=== PATIENT | female | born 1940 | race Caucasian/White ===

== ENCOUNTER → 2016-09-04 | Outpatient (CLI) | payer MEDICARE, MEDICAID ==
[~2016-09-04] MED LIST: ACTOS30 MG PO; ANTI HYPERTENSIVE; ASPIRIN E.C.325 MG PO; BACTRIM PO; BROVANA15 MCG/2 M IH; CALAN SR240 MG PO; CARDIZEM CD360 MG PO; CARDIZEM LA180 MG PO; CARDURA4 MG PO; CLINDAMYCIN HC300 MG PO; DIOVAN160 MG PO; DIOVAN320 MG PO; FERROUS SU325 MG/TAB PO; FORTAMET1000 MG PO; GLUCOPHAGE1000 MG PO; HYDROCHLOR50 MG PO; HYDRODIURIL50 MG PO; IRON324 M1 PO; KLOR-CON 1010 MEQ PO; LASIX 20MG TABL20 MG PO; LIPITOR 10MG10 MG PO; MULTAQ400 MG PO; MULTIVITAMIN FO1 CAP PO; NORCO 325 MG-51 TAB PO; NORVASC 10MG10 MG PO; PERCOCET 5/321 UDTAB PO; PRADAXA75 MG PO; PREDNISONE20 MG PO; PREVACID 30MG30 MG PO; PROAIR HFA0.09 MG/AC IH; PULMICORT0.5 MG/2 M IH; TOPROL XL100 MG PO; ULTRAM 50MG TAB50 MG PO; VIT D; VITAMIN D 1001000 IU PO; ZITHROMAX 250M250 MG PO; ZITHROMAX Z PA250 MG PO
== END ==
LOC: COL.VAS 12:15
DX: I65.29 Occlusion and stenosis of unspecified carotid artery (principal)

== ENCOUNTER → 2016-10-09 | Outpatient (CLI) | payer MEDICARE, MEDICAID | LOC: MC.RAD 11:20 | DX: Z12.31 Encounter for screening mammogram for malignant neoplasm of breast (principal) ==

== ENCOUNTER → 2017-10-28 | Outpatient (CLI) | payer MEDICARE, MEDICAID | LOC: MC.RAD 14:00 | DX: Z12.31 Encounter for screening mammogram for malignant neoplasm of breast (principal); N64.89 Other specified disorders of breast ==

== ENCOUNTER → 2017-10-30 | Outpatient (CLI) | payer MEDICARE, MEDICAID | LOC: MC.RAD 09:57 | DX: R92.8 Other abnormal and inconclusive findings on diagnostic imaging of breast (principal) ==

== ENCOUNTER → 2018-09-04 | Outpatient (CLI) | payer MEDICARE, MEDICAID | LOC: COL.VAS 10:55 | DX: I77.9 Disorder of arteries and arterioles, unspecified (principal) ==

== ENCOUNTER → 2018-10-30 | Outpatient (CLI) | payer MEDICARE, MEDICAID ==
[~2018-10-30] MED LIST changes: +ATIVAN 0.50.5 MG/TAB PO; +BENICAR40 MG PO; +FERROUSAL325 MG PO; +K-TAB10 PO; +KAPSPARGO SPRI100 MG PO; +LIPITOR20 MG PO; +PRIL40 PO; +ZOFRAN ODT4 MG PO; +ZOLOFT 50MG50 MG PO
== END ==
LOC: MC.RAD 13:06
DX: Z12.31 Encounter for screening mammogram for malignant neoplasm of breast (principal)

== ENCOUNTER → 2018-11-03 | Outpatient (CLI) | payer MEDICARE, MEDICAID ==
[~2018-11-03] MED LIST changes: -ATIVAN 0.50.5 MG/TAB PO; -BENICAR40 MG PO; -FERROUSAL325 MG PO; -K-TAB10 PO; -KAPSPARGO SPRI100 MG PO; -LIPITOR20 MG PO; -PRIL40 PO; -ZOFRAN ODT4 MG PO; -ZOLOFT 50MG50 MG PO
== END ==
LOC: COL.VAS 12:16
DX: Z12.31 Encounter for screening mammogram for malignant neoplasm of breast (principal); I48.2 Chronic atrial fibrillation; I11.9 Hypertensive heart disease without heart failure

== ENCOUNTER 2018-11-09 13:52 | Emergency (ER) | payer MEDICARE, MEDICAID ==
[~2018-11-09] VITALS: Ht 170.2 cm; Wt 77.3 kg
[2018-11-09 13:54] VITALS: TEMP 98.1
[2018-11-09] MEDS ORDERED: KAPSPARGO SPRI100 MG PO (14:48)
[2018-11-09] MEDS ORDERED: BENICAR40 MG PO (14:48)
[2018-11-09] MEDS ORDERED: ZOLOFT 50MG50 MG PO (14:49)
[2018-11-09] MEDS ORDERED: ATIVAN 0.50.5 MG/TAB PO (14:49)
[2018-11-09] MEDS ORDERED: TOPROL XL100 MG PO (14:49)
[2018-11-09] MEDS ORDERED: PRIL40 PO (14:49)
[2018-11-09] MEDS ORDERED: FERROUSAL325 MG PO (14:50)
[2018-11-09] MEDS ORDERED: LIPITOR20 MG PO (14:51)
[2018-11-09] MEDS ORDERED: MULTAQ400 MG PO (14:51)
[2018-11-09] MEDS ORDERED: K-TAB10 PO (14:52)
[2018-11-09] MEDS ORDERED: NORCO 325 MG-51 TAB PO (15:32)
[2018-11-09] MEDS ORDERED: ZOFRAN ODT4 MG PO (15:32)
[2018-11-09 16:00] VITALS: BP 138/64; PULSE 65
== END 2018-11-09 16:00 | disposition home or self-care (01) ==
LOC: COL.ER 13:52
DX: S42.202A Unspecified fracture of upper end of left humerus, initial encounter for closed fracture (principal); J44.9 Chronic obstructive pulmonary disease, unspecified; I12.9 Hypertensive chronic kidney disease with stage 1 through stage 4 chronic kidney disease, or unspecified chronic kidney disease; E11.22 Type 2 diabetes mellitus with diabetic chronic kidney disease; N18.9 Chronic kidney disease, unspecified; I48.91 Unspecified atrial fibrillation; F17.210 Nicotine dependence, cigarettes, uncomplicated; Z79.82 Long term (current) use of aspirin; W01.0XXA Fall on same level from slipping, tripping and stumbling without subsequent striking against object, initial encounter; Y92.009 Unspecified place in unspecified non-institutional (private) residence as the place of occurrence of the external cause
CPT/HCPCS: J2405; J3010

== ENCOUNTER 2019-03-24 06:48 | Emergency (ER) | payer MEDICARE, MEDICAID ==
[~2019-03-24] VITALS: Ht 165.1 cm; Wt 78.6 kg
[~2019-03-24 06:48] MED LIST changes: +ATIVAN 0.50.5 MG/TAB PO; +BENICAR40 MG PO; +FERROUSAL325 MG PO; +K-TAB10 PO; +KAPSPARGO SPRI100 MG PO; +LIPITOR20 MG PO; +PRIL40 PO; +ZOFRAN ODT4 MG PO; +ZOLOFT 50MG50 MG PO
[2019-03-24 09:49] VITALS: BP 144/64; PULSE 55; TEMP 97.9
== END 2019-03-24 10:10 | disposition home or self-care (01) ==
LOC: COL.ER 06:48
DX: S20.212A Contusion of left front wall of thorax, initial encounter (principal); E11.9 Type 2 diabetes mellitus without complications; Z87.891 Personal history of nicotine dependence; Z79.84 Long term (current) use of oral hypoglycemic drugs; Z87.448 Personal history of other diseases of urinary system; W01.0XXA Fall on same level from slipping, tripping and stumbling without subsequent striking against object, initial encounter

== ENCOUNTER → 2019-04-05 | Outpatient (CLI) | payer MEDICARE, MEDICAID ==
[~2019-04-05] MED LIST changes: +ASPIRIN 81M81 MG/TA2 PO; +LASIX 40MG TABL40 MG PO; +NEURONTIN300 MG/CAP PO; +NITROSTAT0.4 MG/TAB SL
== END ==
LOC: COL.RAD 12:37
DX: M51.16 Intervertebral disc disorders with radiculopathy, lumbar region (principal); M43.17 Spondylolisthesis, lumbosacral region

== ENCOUNTER 2019-04-06 10:51 | Inpatient (IN) | payer MEDICARE, MEDICAID ==
[~2019-04-06] VITALS: Ht 167.6 cm; Wt 85.9 kg
[~2019-04-06 10:51] MED LIST changes: -ASPIRIN 81M81 MG/TA2 PO; -LASIX 40MG TABL40 MG PO; -NEURONTIN300 MG/CAP PO; -NITROSTAT0.4 MG/TAB SL
[2019-04-06 11:39] LABS: BASO # 0.1 (0.0-0.2); BASO % 0.7 % (0.0-2.0); EOS # 0.2 (0.0-0.7); EOS % 2.3 % (0-4.0); GRAN # 5.2 (1.4-6.5); GRAN % 73.3 % (42.2-75.2); LYMPH # 1.1 (1.2-3.4); LYMPH % 15.1 % (20.0-51.0); MEAN CELL VOLUME 98 fl (80.0-100.0); MEAN CORPUSCULAR HGB CONC 31 g/dl (33.0-37.0); MEAN PLATELET VOLUME 10.6 fl (7.4-10.4); MONO # 0.5 (0.1-0.6); MONO % 7.7 % (1.7-9.3); PLATELET COUNT 149 K/mm3 (130-400); RED BLOOD COUNT 2.79 M/mm3 (4.10-5.30); REDCELL DISTRIBUTION WIDTH-CV 14.6 % (11.5-14.5)
[2019-04-06 11:51] LABS: BILIRUBIN,TOTAL 0.7 mg/dL (0.0-1.0); CALCIUM 9.4 mg/dL (8.4-10.2); CREATININE, serum 2.75 (0.52-1.25); POTASSIUM 4.3 mmol/L (3.4-5.0); TOTAL PROTEIN 7.5 gm/dL (6.4-8.2)
[2019-04-06 11:59] LABS: HEMATOCRIT 27.4 % (37.0-47.0); HEMOGLOBIN 8.5 g/dl (12.5-16.0); MEAN CORPUSCULAR HEMOGLOBIN 30 pg (27.0-31.0)
[2019-04-06 12:01] LABS: TROPONIN-I 0.018 ng/mL (0.000-0.035)
[2019-04-06 12:29] LABS: INR 1.2 (0.8-3.0); PARTIAL THROMBOPLASTIN TIME 33.4 SECONDS (26.0-37.0); PROTHROMBIN TIME 13.5 SECONDS (9.7-12.8)
[2019-04-06 13:09] LABS: COLLECTION METHOD CLEAN CATCH
[2019-04-06 13:23] LABS: PH 5 (5-8); SQUAMOUS EPITHELIAL 0-2 /hpf; URINE APPEARANCE Clear; URINE BACTERIA Rare /hpf; URINE BILIRUBIN Negative (NEGATIVE); URINE BLOOD Negative (NEGATIVE); URINE COLOR Straw; URINE GLUCOSE 1+ (NEGATIVE); URINE KETONE Negative (NEGATIVE); URINE LEUKOCYTE ESTERASE Negative (NEGATIVE); URINE NITRATE Negative (NEGATIVE); URINE PROTEIN(semi-quant) 2+ (NEGATIVE); URINE RBC 0-2 /hpf; URINE UROBILINOGEN Negative (NEGATIVE)
[2019-04-06 15:23] VITALS: BP 145/62; PULSE 65; TEMP 98.3
[2019-04-06 15:28] VITALS: BP 145/62; PULSE 67; TEMP 97.5
[2019-04-06 19:25] VITALS: BP 109/69; PULSE 61; TEMP 98.1
--- NOTE | 2019-04-06 19:40 | NUR ---
Pt admission completed. Pt seen by hospitalist. Pt A&O, SBA assist in room, usually uses walker at home, pt steady on feet. Pt has LAC INT IV that flushes w/o complications. Pt on 2L NC. ECHO to be completed earlier but pt unable to finish/tolerate full test, ended earlier d/t pt not being able to breathe. Discussed w/ DARY Guillaume. May attempt again tomorrow. O2 sats checked, pt satting at 88%, breathing is labored, O2 increased to 3L NC at this time. Sats increasing to 94%. WOB decreasing. Breath sounds diminished, some wheezing noted. Heart RRR. Pulses strong. BLE edema 1-2+. Neuro checks WNL. Pt received dose of lasix. Gustavo consulted. No other concerns noted at this time.
[2019-04-06] MEDS ORDERED: NEURONTIN300 MG/CAP PO (19:53)
[2019-04-06] MEDS ORDERED: ASPIRIN 81M81 MG/TA2 PO (19:57)
[2019-04-06] MEDS ORDERED: NITROSTAT0.4 MG/TAB SL (19:58)
[2019-04-06] MEDS ORDERED: LASIX 40MG TABL40 MG PO (20:00)
--- NOTE | 2019-04-06 20:00 | NUR ---
Received report from INDIO Fields. Assessment complete. Alert and oriented. Son at bedside. c/o pain to left shoulder, left side rib, and back pain, rate 5/10. PRN pain meds administered. Scheduled meds administered. On 2LO2 NC, denies SOB. INT to LAC intact, flushed, dressing CDI. Tele monitor in place. Assisted pt to BSC. Needs met. Call light within reach.
--- NOTE | 2019-04-06 20:04 | NUR ---
Med list from PCP office obtained, med rec completed. transportation planner nurse notified.
[2019-04-06 23:20] VITALS: BP 101/48; PULSE 67; TEMP 98.5
[2019-04-07 03:54] VITALS: BP 120/57; PULSE 66; TEMP 98.2
--- NOTE | 2019-04-07 05:58 | NUR ---
Pt c/o back pain, prn pain meds administered. Pt requested nicoderm patch at 0400, this was placed at this time to pt left upper chest, will endorse to day shift RN. Needs attended too. Meds administered. Call light within reach.
[2019-04-07 06:59] LABS: BASO # 0.1 (0.0-0.2); EOS # 0.2 (0.0-0.7); EOS % 2.3 % (0-4.0); GRAN # 4.7 (1.4-6.5); GRAN % 66.6 % (42.2-75.2); LYMPH # 1.5 (1.2-3.4); LYMPH % 21.6 % (20.0-51.0); MEAN CELL VOLUME 99 fl (80.0-100.0); MEAN CORPUSCULAR HGB CONC 31 g/dl (33.0-37.0); MEAN PLATELET VOLUME 11.1 fl (7.4-10.4); MONO # 0.6 (0.1-0.6); MONO % 8.2 % (1.7-9.3); PLATELET COUNT 168 K/mm3 (130-400); RED BLOOD COUNT 2.73 M/mm3 (4.10-5.30); REDCELL DISTRIBUTION WIDTH-CV 14.6 % (11.5-14.5)
--- NOTE | 2019-04-07 07:08 | NUR ---
Report given to INDIO Matos and INDIO Esquivel.
[2019-04-07 07:16] LABS: HEMATOCRIT 26.9 % (37.0-47.0); HEMOGLOBIN 8.2 g/dl (12.5-16.0); MEAN CORPUSCULAR HEMOGLOBIN 30 pg (27.0-31.0)
[2019-04-07 07:18] LABS: CALCIUM 9.4 mg/dL (8.4-10.2); CREATININE, serum 2.64 (0.52-1.25); MAGNESIUM 1.7 mg/dL (1.6-2.3); POTASSIUM 3.8 mmol/L (3.4-5.0)
[2019-04-07 08:44] VITALS: BP 129/53; PULSE 69; TEMP 98.5
--- NOTE | 2019-04-07 12:05 | NUR ---
Initial visit; Patient thanked Broadcast Checker for offering spiritual care and for calling her [facility] home letting them know of her hospitalization.
[2019-04-07 12:21] VITALS: BP 129/60; PULSE 68; TEMP 98.6
--- NOTE | 2019-04-07 16:49 | NUR ---
Radiation Safety Officer met with patient to discuss discharge planning. Patient's sons, Khanh and Shayan are at bedside. Patient lives with her daughter Mariella (ph#[phone]) in [place] and sees Dr. Forrest for primary care. [facility] and uses a walker at home. Patient is unsure if she has Advance Directives but thinks at one time she set them up to designate her daughter. Patient reports she feels she could use some assistance at home with house cleaning. Patient plans to return home upon discharge. SW to continue to follow.
[2019-04-07 17:21] VITALS: BP 94/52; PULSE 65; TEMP 98.7
[2019-04-07 20:00] VITALS: BP 116/48; PULSE 65; TEMP 98.5
--- NOTE | 2019-04-07 23:35 | NUR ---
Received report from INDIO Matos. Assessment complete. Alert and oriented. Pt awake sitting up in bed with son at bedside. C/O low back pain that radiated down to rt leg from sciatic nerve pain, prn pain meds adminsitered. Scheduled meds given. denies SOB, on 2LO2NC. Pt ambulates self using walker. SCD in place to BLE. Tele monitor in place, leads checked. INT to LAC intact, flushed, dressing CDI. Needs attended too. Call light within reach.
[2019-04-08 01:27] VITALS: BP 112/68; PULSE 68; TEMP 98.1
[2019-04-08 05:17] VITALS: BP 110/57; PULSE 69; TEMP 98.1
--- NOTE | 2019-04-08 05:23 | NUR ---
Pt requested pain med for low back pain and left side rib pain. PRN pain meds administered. Scheduled meds given. Son remained at bedside. Needs attended too. Call light within reach.
--- NOTE | 2019-04-08 07:17 | NUR ---
Report given to INDIO Matos.
[2019-04-08 07:20] LABS: BASO % 0.6 % (0.0-2.0); EOS # 0.3 (0.0-0.7); EOS % 4.3 % (0-4.0); GRAN # 4.3 (1.4-6.5); GRAN % 67.4 % (42.2-75.2); LYMPH # 1.1 (1.2-3.4); LYMPH % 16.9 % (20.0-51.0); MEAN CELL VOLUME 98 fl (80.0-100.0); MEAN CORPUSCULAR HGB CONC 31 g/dl (33.0-37.0); MEAN PLATELET VOLUME 10.8 fl (7.4-10.4); MONO # 0.7 (0.1-0.6); MONO % 10.3 % (1.7-9.3); PLATELET COUNT 133 K/mm3 (130-400); RED BLOOD COUNT 2.52 M/mm3 (4.10-5.30); REDCELL DISTRIBUTION WIDTH-CV 14.7 % (11.5-14.5)
[2019-04-08 07:28] LABS: HEMATOCRIT 24.7 % (37.0-47.0); HEMOGLOBIN 7.7 g/dl (12.5-16.0); MEAN CORPUSCULAR HEMOGLOBIN 31 pg (27.0-31.0)
[2019-04-08 07:32] LABS: CREATININE, serum 2.89 (0.52-1.25); MAGNESIUM 1.6 mg/dL (1.6-2.3); POTASSIUM 3.9 mmol/L (3.4-5.0)
[2019-04-08 07:49] VITALS: BP 131/66; PULSE 65; TEMP 99
[2019-04-08] MEDS ORDERED: LASIX 40MG TABL40 MG PO (09:45)
--- NOTE | 2019-04-08 10:20 | NUR ---
Follow-up visit; let Alessandra know she had contacted her Business Banker per request. wished her continued healing.
--- NOTE | 2019-04-08 10:34 | NUR ---
REPORT RECEIVED FROM TUBE MACHINE OPERATOR RN EVANGELISTA. PT RESTING IN BED, ALERT AND AWAKE. SON AT BEDSIDE. THORACENTESIS PERFORMED BY DR. MONTEMAYOR THIS AM WITH 830 ML OF FLUID REMOVED FROM LEFT LUNG FIELD. PT WEARS 2L O2 AND REPORTS BREATHING BETTER AFTER FLUID REMOVAL. WILL CONTINUE TO MONITOR.
[2019-04-08 10:37] LABS: GLUCOSE,PLEURAL FLUID 155 mg/dL; TOTAL PROTEIN,PLEURAL FLUID 2.3 gm/dL
[2019-04-08 10:39] LABS: PLEURAL FLUID RBC 1000 /mm3 (0-0); PLEURAL FLUID WBC 163 /mm3
--- NOTE | 2019-04-08 11:01 | NUR ---
patient requires 3lpm during ambulation.
[2019-04-08 15:05] LABS: PLEURAL FLUID APPEARANCE CLEAR; PLEURAL FLUID COLOR YELLOW
--- NOTE | 2019-04-08 16:30 | NUR ---
PT AWAITED 02 ARRIVAL PRIOR TO DISCHARGING FROM FACILITY. WENT OVER PT EDUCATION, NO QUESTIONS VOICED. SON AT BEDSIDE THROUGHOUT SHIFT TO TAKE PT HOME. IV AND TELE REMOVED WITHOUT ISSUES. THEROCENTESIS WAS PERFORMED IN MORNING, PT TOLERATED WELL, 850CC OF FLUID REMOVED AND SENT TO LAB. PAIN MED GAVE THIS AFTERNOON FOR C/O CHRONIC BACK PAIN THAT FALIRED UP. NO OTHER ISSUES OR CONSERNS VOICED PRIOR TO DC'ING.
--- NOTE | 2019-04-08 17:44 | NUR ---
Pottery Machine Operator attended clinical rounds with the team and patient to discharge home today. Exercise Ox ordered for patient and she qualifies for home oxygen. SW met with patient to present DME choice form. Patient selected [facility]. SW faxed facesheet, order, and H&P to [facility] who will deliver oxygen to patient room today. Patient expressed interest in obtaining in home supports for household duties. TMOA contacted [place] [facility] who advised if patient has Medicaid, she may qualify for paid in home supports. TOMA contacted [facility] and left a message as they will need to complete initial assessment. SW gathered patient's contact information and will follow up. No additional needs at this time.
== END 2019-04-08 17:00 | disposition home or self-care (01) | DRG 183 ==
LOC: COL.ER 10:51 → MEDICAL 12:49
PROVIDERS: Emergency Medicine; Internal Medicine Pulmonary Disease; Nurse Practitioner Family; Physician Assistant; ADMIT Student in an Organized Health Care Education/Training Program
PROC: 0W9B3ZZ Drainage of Left Pleural Cavity, Percutaneous Approach (ICD-10-PCS; principal; 2019-04-08)
PROC: 0W993ZZ Drainage of Right Pleural Cavity, Percutaneous Approach (ICD-10-PCS; 2019-04-08)
DX: S22.42XA Multiple fractures of ribs, left side, initial encounter for closed fracture (principal); I50.33 Acute on chronic diastolic (congestive) heart failure; J96.01 Acute respiratory failure with hypoxia; I13.0 Hypertensive heart and chronic kidney disease with heart failure and stage 1 through stage 4 chronic kidney disease, or unspecified chronic kidney disease; N18.4 Chronic kidney disease, stage 4 (severe); I48.0 Paroxysmal atrial fibrillation; F17.210 Nicotine dependence, cigarettes, uncomplicated; B34.8 Other viral infections of unspecified site; E11.22 Type 2 diabetes mellitus with diabetic chronic kidney disease; W19.XXXA Unspecified fall, initial encounter; Z79.82 Long term (current) use of aspirin; Y93.9 Activity, unspecified; Y92.9 Unspecified place or not applicable; Y99.9 Unspecified external cause status
CPT/HCPCS: 99223-AI; 99232-AI; 99239; A9284; J0696; J1815; J1940

== ENCOUNTER → 2019-04-20 | Outpatient (CLI) | payer MEDICARE, MEDICAID ==
[~2019-04-20] MED LIST changes: +ASPIRIN 81M81 MG/TA2 PO; +LASIX 40MG TABL40 MG PO; +NEURONTIN300 MG/CAP PO; +NITROSTAT0.4 MG/TAB SL
== END ==
LOC: COL.VAS 08:44
DX: N18.4 Chronic kidney disease, stage 4 (severe) (principal); I51.7 Cardiomegaly; I34.0 Nonrheumatic mitral (valve) insufficiency

== ENCOUNTER → 2019-07-06 | Outpatient (CLI) | payer MEDICARE, MEDICAID | LOC: COL.VAS 10:26 | DX: I50.9 Heart failure, unspecified (principal); I08.3 Combined rheumatic disorders of mitral, aortic and tricuspid valves ==

== ENCOUNTER 2019-09-21 22:32 | Emergency (ER) | payer MEDICARE, MEDICAID ==
[~2019-09-21] VITALS: Ht 167.6 cm; Wt 80.0 kg
[2019-09-21 23:05] VITALS: BP 142/65; TEMP 97.7
[2019-09-22 01:20] VITALS: PULSE 63
== END 2019-09-22 01:20 | disposition home or self-care (01) ==
LOC: COL.ER 22:32
DX: S52.601A Unspecified fracture of lower end of right ulna, initial encounter for closed fracture (principal); E78.5 Hyperlipidemia, unspecified; E11.22 Type 2 diabetes mellitus with diabetic chronic kidney disease; N18.4 Chronic kidney disease, stage 4 (severe); F17.210 Nicotine dependence, cigarettes, uncomplicated; Z79.82 Long term (current) use of aspirin; W01.0XXA Fall on same level from slipping, tripping and stumbling without subsequent striking against object, initial encounter; Y92.009 Unspecified place in unspecified non-institutional (private) residence as the place of occurrence of the external cause
CPT/HCPCS: Q4021

== ENCOUNTER 2019-09-22 14:00 | Outpatient (RCR) | payer MEDICARE, MEDICAID ==
[2019-10-26] MEDS ORDERED: CATAPRES 0.1MG0.1 MG PO (07:51)
[2019-10-26] MEDS ORDERED: ZAROXOLYN5 MG PO (07:53)
[2019-10-28] MEDS ORDERED: IPRATROPIUM BROM3 M1 IH (11:52)
[2019-10-28] MEDS ORDERED: TYLENOL 325MG325 MG PO (11:53)
[2019-10-28] MEDS ORDERED: PULMICORT R1 MG/2 ML IH (11:54)
[2019-10-28] MEDS ORDERED: NICODERM C21 MG/PATC TD (11:55)
[2019-10-28] MEDS ORDERED: NICORETTE GUM2 MG BC (11:55)
[2019-11-02] MEDS ORDERED: BENICAR5 MG PO (10:00)
[2019-11-02] MEDS ORDERED: APRESOLINE 25MG25 MG PO (10:00)
[2019-11-02] MEDS ORDERED: PLAVIX 75MG TAB75 MG PO (10:00)
[2019-11-02] MEDS ORDERED: CRESTOR 10MG10 MG PO (10:00)
[2019-11-02] MEDS ORDERED: LASIX 20MG TABL20 MG PO (10:00)
[2019-11-02] MEDS ORDERED: CARAFATE S1 GM/10 ML PO (10:42)
[2019-11-09] MEDS ORDERED: PROVENTIL0.09 MG/A1 IH (09:06)
[2019-11-09] MEDS ORDERED: NICODERM C21 MG/PATC TD (09:07)
[2019-11-09] MEDS ORDERED: PULMICORT180 MCG/Ac IH (09:08)
[2019-11-09] MEDS ORDERED: NORCO 325 MG-51 TAB PO (09:11)
== END 2019-11-09 | disposition still patient (30) ==
LOC: WSPT
DX: Z00.8 Encounter for other general examination (principal); M48.061 Spinal stenosis, lumbar region without neurogenic claudication; M47.26 Other spondylosis with radiculopathy, lumbar region; M06.09 Rheumatoid arthritis without rheumatoid factor, multiple sites; M43.16 Spondylolisthesis, lumbar region; M51.16 Intervertebral disc disorders with radiculopathy, lumbar region; M71.38 Other bursal cyst, other site

== ENCOUNTER 2019-10-28 16:02 | Inpatient (IN) | payer MEDICARE, MEDICAID ==
[~2019-10-28] VITALS: Ht 170.2 cm; Wt 77.6 kg
[~2019-10-28 16:02] MED LIST changes: +CATAPRES 0.1MG0.1 MG PO; +IPRATROPIUM BROM3 M1 IH; +NICODERM C21 MG/PATC TD; +NICORETTE GUM2 MG BC; +PULMICORT R1 MG/2 ML IH; +TYLENOL 325MG325 MG PO; +ZAROXOLYN5 MG PO
[2019-11-02] MEDS ORDERED: BENICAR5 MG PO (10:00)
[2019-11-02] MEDS ORDERED: LASIX 20MG TABL20 MG PO (10:00)
[2019-11-02] MEDS ORDERED: CRESTOR 10MG10 MG PO (10:00)
[2019-11-02] MEDS ORDERED: PLAVIX 75MG TAB75 MG PO (10:00)
[2019-11-02] MEDS ORDERED: APRESOLINE 25MG25 MG PO (10:00)
[2019-11-02] MEDS ORDERED: CARAFATE S1 GM/10 ML PO (10:42)
--- NOTE | 2019-11-02 21:33 | NUR ---
Patient arrived to [facility] this evening and was a CGA with gait belt from walker to bed. Patient arrived right before shift change. Denied any questions. VSS prior to transfering to [facility]. Patient pleasent mood, given water and had eaten supper prior to her arrival.
[2019-11-02 21:38] VITALS: BP 152/62; PULSE 94; TEMP 98.2
[2019-11-03 05:38] VITALS: BP 155/57; PULSE 86; TEMP 98.2
--- NOTE | 2019-11-03 06:03 | NUR ---
PT HAD UNEVENTFUL NIGHT. RESTED VERY WELL, DID WAKE UP AND ASKED FOR PAIN MEDICATIONS IN THE MIDDLE OF THE NIGHT, ADMINISTERED AND RETURNED TO SLEEP. NO FURTHER CONCERNS.
--- NOTE | 2019-11-03 06:56 | NUR ---
PATIENT SLEEPLING IN BED AT BEDSIDE SHIFT REPORT. PATIENT'S BED ALARM ON, CALL LIGHT WITHIN REACH, BED IN LOW.
--- NOTE | 2019-11-03 16:07 | NUR ---
TOMA met with the patient to complete intake and to present and review the IPR Team Conference Note. The patient lives in [place] with her daughter, Mariella (ph#[phone]) and son, Melissa. She reports needing assistance with ADLs prior to hospitalization and has a cane, walker, and transport chair. She states that her children helped her with her ADLs. The patient was also receiving home health services from [facility] prior to be hospitalized. The patient's PCP is Dr. Agueda Forrest and she receives her medications at [facility]. She repors no difficulties obtaining her meds. This SW contacted the patient's PCP office and requested a copy of her DPOA-HC, during the patient's acute hospital stay. This SW received the DPOA-HC and placed the document in the patient's chart. The patient's DPOA-HC is her daughter, Mariella. The alternate is the patient's son, Luis (ph#[phone]). TOMA then reviewed the IPR Team Conference Note with the patient. TOMA informed the patient of the team's plan for a tentative d/c next Friday, 11/08, with home health services for PT/OT and possibly ST. The patient was agreeable to the plan. She states that she would like to resume home health from [facility]. TOMA contacted and faxed updates to [facility] at [facility]. [facility] reports that they can continue services for the patient. TOMA then contacted and updated the patient's daughter (Mariella) and son (Luis) on the above information. Mariella and Luis were agreeable to the plan. A patient/family meeting was scheduled for this Friday at 1315. Luis plans to be here for the meeting. Mariella would like to be on speaker phone. TOMA to notify IPR Director. TOMA to continue to follow.
--- NOTE | 2019-11-03 17:46 | NUR ---
DR. RUCKER'S OFFICE WAS CALLED TODAY TO CLARIFY WEIGHT BEARING STATUS OF RIGHT WRIST. THE NURSE STATED IT WAS WEIGHT BEARING TOLERATED AND ROM OK WITH BRACE ON. PATIENT UTILIZED FWW AFTER CLARIFICATION, DOING WELL, TOOK PRN PAIN MEDICINE THIS AM AND DENIED PAIN THE REST OF THE SHIFT. PATIENT HAD SMALL BM TODAY AND C/O NAUSEA TWO SEPERATE INCIDENCES TODAY. PRN ZOFRAN WAS ORDERED AND GIVEN WITH FIRST INCIDENT AND WAS EFFECTIVE. NO INSULIN REQUIRED TODAY. PATIENT MOVED BACK INTO BED FOR THE EVENING, BED ALARM ON, CALL LIGHT WITHIN REACH, BED IN LOW.
[2019-11-03 18:08] VITALS: BP 157/74; PULSE 74; TEMP 97.6
--- NOTE | 2019-11-03 23:31 | NUR ---
O2 2LNC STARTED FOR O2 SPOT CHECK 90% W/A.
[2019-11-04 04:47] VITALS: BP 151/58; PULSE 77; TEMP 97.9
--- NOTE | 2019-11-04 10:20 | NUR ---
Patient takes pills whole with water all at one time with no difficulties. Patient currently attending therapy at this time. Patient tolerating diet well this morning. Denied questions this morning.
--- NOTE | 2019-11-04 12:40 | NUR ---
Patient picks at the scabs on her face due to dryness so some bloody drainage from right cheek and this nurse placed a bandaid over the area. Applied lotion to face and bilateral legs and feet. Patient ate all her lunch. Denies questions at this time.
[2019-11-04 16:14] VITALS: BP 118/70; PULSE 68; TEMP 98.4
[2019-11-04 16:27] VITALS: BP 100/70; PULSE 75; TEMP 97.6
--- NOTE | 2019-11-04 19:15 | NUR ---
PT SITTING IN RECLINER. ASSISTED TO BR. NEEDS CUING FOR SAFETY- NO AMB BACKWARDS TO TOILET PT ABLE TO MANAGE CLOTHING AND HYGEINE. PT ABLE TO CHANGE INTO GOWN HERSELF WITH SET UP ONLY. NEEDED ASSIST TYING GOWNIN THE BACK. BACK TO RECLINER. FEET ELEVATED. LG BANDAID TO RT F/A OLD SKIN TEAR. CHAIR ALARM SET. CALL LIGHT IN REACH.
[2019-11-05 05:36] VITALS: BP 129/71; PULSE 62; TEMP 97.9
[2019-11-05 08:23] VITALS: BP 96/67; PULSE 72; TEMP 97.3
--- NOTE | 2019-11-05 09:11 | NUR ---
PATIENT RECEIVING RT TREATMENT AT BEDSIDE SHIFT REPORT. GIVEN PRN NORCO WITH BARBER STYLIST. PATIENT'S BED IN LOW, CALL LIGHT WITHIN REACH, BED ALARM ON.
--- NOTE | 2019-11-05 13:35 | NUR ---
SW attended a patient/family. The patient's son, Luis, was at bedside. The patient's daughter (Mariella) and son (Melissa) were on speaker phone. Also present was IPR Director, PT, OT, and ST. IPR Director started by explaining the purpose of the meeting. PT/OT/ST then discussed the patient's progress and how a discharge date has been set for next Friday, 11/08, with home health PT/OT. The patient and her family were agreeable to the plan. The patient's daughter plans to be here on Friday at 1300 to practice car transfers. The team answered all questions. SW to continue to follow.
--- NOTE | 2019-11-05 14:05 | NUR ---
Admission QIM scores were reviewed by the team. Code of 5 chosen for oral hygiene was determined by team discussion to be the most usual performance before interventions for this patient during the assessment period. Code of 4 chosen for toilet hygiene was determined by team discussion to be the most usual performance for this patient during the assessment period. Code of 3 chosen for toileting transfers was determined by team discussion to be the most usual performance for this patient during the assessment period. Code of 5 chosen for upper body dressing was determined by team discussion to be the most usual performance for this patient during the assessment period. Code of 4 chosen for lower body dressing was determined by team discussion to be the most usual performance for this patient during the assessment period. Code of 4 chosen for rolling left to right was determined by team discussion to be the most usual performance for this patient during the assessment period. Code of 3 chosen for sit to lying was determined by team discussion to be the most usual performance for this patient during the assessment period. Code of 3 chosen for lying to sitting on side of bed was determined by team discussion to be the most usual performance for this patient during the assessment period. Code of 3 for sit to stand was determined by team discussion to be the most usual performance for this patient during the assessment period. Code of 4 for chair/bed to chair transfers was determined by team discussion to be the most usual performance for this patient during the assessment period. Code of 4 chosen for walk 10 feet was determined by team discussion to be the most usual performance for this patient during the assessment period.--Destiny Licona,
[2019-11-05 16:06] VITALS: BP 111/72; PULSE 55; TEMP 97.9
--- NOTE | 2019-11-05 18:18 | NUR ---
PATIENT TOOK ONE PRN PAIN MEDICATION THIS AFTERNOON AFTER THERAPY. PATIENT WAS NAUSEOUS ONE TIME THIS AM AND TOOK PRN ZOFRAN WHICH WAS EFFECTIVE. PATIENT'S FAMILY MEETING WENT WELL AND PATIENT IS IN BED RESTING, CALL LIGHT WITHIN REACH, BED ALARM ON AND BED IN LOW.
--- NOTE | 2019-11-05 19:38 | NUR ---
CHANGE OF SHIFT REPORT RECEIVED FROM DAY SHIFT NURSE. BED ALARM ON.
--- NOTE | 2019-11-05 20:00 | NUR ---
OBSERVED SOME RLE WEAKNESS WHEN LIFTING LEG BACK INTO BED, OBSERVED WALKING STEADY. DENIES CHEST PAIN, SHORTNESS OF BREATH. DENIES ANY NEEDS AT THIS TIME.
--- NOTE | 2019-11-06 00:06 | NUR ---
PATIENT RESTING WITH EYES CLOSED, DOES NOT WAKEN WHEN ROOM ENTERED BY STAFF. OBSERVED BREATHING NONLABORED AND EVEN. BED ALARM ON.
[2019-11-06 06:03] VITALS: BP 141/53; PULSE 63; TEMP 98.4
--- NOTE | 2019-11-06 07:09 | NUR ---
CHANGE OF SHIFT REPORT GIVEN TO DAY SHIFT NURSEMOSHE. PATIENT SITTING UP AT SIDE OF BED.
--- NOTE | 2019-11-06 07:19 | NUR ---
PATIENT RECEIVING RT TREATMENT ON EOB AT BEDSIDE SHIFT REPORT. WILL GIVE 2 PRN NORCO'S THIS AM BEFORE THERAPY FOR PAIN MANAGEMENT. BED ALARM ON, CALL LIGHT WITHIN REACH, BED IN LOW.
--- NOTE | 2019-11-06 18:21 | NUR ---
PATIENT TOOK PRN NORCO TWICE TODAY FOR PAIN WITH THERAPY. MEALTONIN ORDERED FOR SLEEP THIS VIKTOR. NO BM TODAY, PATIENT DOING WELL WITH THERAPY. SITTING ON EOB AT BEDSIDE SHIFT REPORT. BED INLOW, CALL LIGHT WITHIN REACH, BED ALARM ON.
[2019-11-06 18:30] VITALS: BP 161/80; PULSE 77; TEMP 97.4
--- NOTE | 2019-11-06 20:49 | NUR ---
PT IN BED. IS ALERT AND ORIENTED X4, WATCHING TV. HAS BEEN ASSISTED INTO GOWN FOR NIGHT. BED ALARM IS ON. TAKES HS MEDS WITHOUT PROBLEM. NOTED NUMEROUS BRUISES TO ARMS AND RT BUTTOCK. DOES NOT WANT SCDS ON.
--- NOTE | 2019-11-06 23:30 | NUR ---
MEDICATED WITH NORCO 5/325MG 2 TABS FOR SCIATICA PAIN. ASSISTED TO BATHROOM WITH WALKER AND GAIT BELT, GAIT STEADY. VOIDS AND BACK TO BED. BED ALARM ON.
[2019-11-07 04:55] VITALS: BP 99/57; PULSE 81; TEMP 98
--- NOTE | 2019-11-07 05:00 | NUR ---
ASSISTED TO BATHROOM WITH GAIT BELT AND WALKER. VOIDS AND BACK TO BED. DENIES NEED FOR PAIN MEDS AT THIS TIME.
--- NOTE | 2019-11-07 10:47 | NUR ---
Assessment completed, alert/oriented, vital signs have been stable, reports pain is minimal at this time, she is up with assist to the bathroom with stand by asssitance, heart RRR, lungs CTA, she has eaten breakfast and is now sitting up inthe chair and has taken morning meds, denies other needs at this time
[2019-11-07 18:09] VITALS: BP 146/70; PULSE 88; TEMP 98.8
--- NOTE | 2019-11-07 22:30 | NUR ---
Pt complains of being sweaty all over. BS=59. Given OJ and snack. BS=75 after eating, reports feeling better. Assisted with new gown and repositioning up in bed. Bed alarm on.
[2019-11-08 06:00] VITALS: BP 102/74; PULSE 78; TEMP 98.5
--- NOTE | 2019-11-08 06:26 | NUR ---
PT AWAKE, NO NEEDS OFFERED AT THIS TIME. NO FURTHER LOW BLOOD SUGARS THIS SHIFT.
[2019-11-08 07:39] LABS: BASO % 0.5 % (0.0-2.0); EOS % 0.2 % (0-4.0); GRAN # 4.8 (1.4-6.5); GRAN % 78.5 % (42.2-75.2); LYMPH # 0.8 (1.2-3.4); LYMPH % 13.8 % (20.0-51.0); MEAN CELL VOLUME 91 fl (80.0-100.0); MEAN CORPUSCULAR HGB CONC 32 g/dl (33.0-37.0); MEAN PLATELET VOLUME 9.9 fl (7.4-10.4); MONO # 0.4 (0.1-0.6); MONO % 6.7 % (1.7-9.3); PLATELET COUNT 146 K/mm3 (130-400); RED BLOOD COUNT 3.12 M/mm3 (4.10-5.30)
[2019-11-08 07:40] LABS: HEMATOCRIT 28.5 % (37.0-47.0); HEMOGLOBIN 9.1 g/dl (12.5-16.0); MEAN CORPUSCULAR HEMOGLOBIN 29 pg (27.0-31.0)
[2019-11-08 07:56] LABS: CALCIUM 8.7 mg/dL (8.4-10.2); CREATININE, serum 3.55 (0.52-1.25); MAGNESIUM 1.8 mg/dL (1.6-2.3); POTASSIUM 5.3 mmol/L (3.4-5.0)
--- NOTE | 2019-11-08 10:05 | NUR ---
PATIENT RESTING IN BED AT BEDISIDE SHIFT REPORT, DENIES PAIN THIS AM. ENCOURAGED IS FOR DIMINISHED LUNG SOUNDS. PATIENT MADE MOD-I IN ROOM TODAY WITH FWW. PATIENT IN CHAIR AT THIS TIME CALL LIGHT WITHIN REACH.
--- NOTE | 2019-11-08 15:34 | NUR ---
Strategic Partner Development Manager met with patient to introduce oneself and to present IM form. The patient understood the form and gave SW permission to sign the form on her behalf. A copy was provided to the patient and original was placed in the chart. There are no questions or concerns at this time.
[2019-11-08 16:18] VITALS: BP 101/67; PULSE 64; TEMP 97.7
--- NOTE | 2019-11-08 19:25 | NUR ---
PATIENT MADE MOD-I IN ROOM TODAY, PATIENT ENCOURAGED TO STILL CALL IF NEEDED. PATIENT DENIED PAIN THIS SHIFT IS RESTING IN BED AT BEDSIDE SHIFT REPORT.
--- NOTE | 2019-11-08 21:00 | NUR ---
PT IN BED, IS ALERT AND ORIENTED X4. HAS BEEN ADVANCED TO MOD-I, AND IS INDEPENDENT IN THE ROOM. TAKES HS MEDS WITHOUT NEED OF PAIN MEDS AT THIS TIME. BS=73, WAS EATING SNACK AT THIS TIME.
--- NOTE | 2019-11-09 01:48 | NUR ---
PT MEDICATED WITH NORCO 2 TABS PO FOR SCIATICA PAIN.
[2019-11-09 05:15] VITALS: BP 138/59; PULSE 81; TEMP 97.7
[2019-11-09] MEDS ORDERED: PROVENTIL0.09 MG/A1 IH (09:06)
[2019-11-09] MEDS ORDERED: NICODERM C21 MG/PATC TD (09:07)
[2019-11-09] MEDS ORDERED: PULMICORT180 MCG/Ac IH (09:08)
[2019-11-09] MEDS ORDERED: NORCO 325 MG-51 TAB PO (09:11)
--- NOTE | 2019-11-09 09:25 | NUR ---
The patient is to discharge home today, 11/08 with [facility] [employer] [facility]. She will have PT/OT/Nursing services. SW faxed discharge orders to [facility]. There are no additional needs at this time.
--- NOTE | 2019-11-09 10:09 | NUR ---
Patient resting in bed, call light in reach and independent in her room. Patient is planning on discharging today at 1:00 PM with daughter and son coming to pick her up. Patient reporting right leg pain and given prn pain meds with good effect.
--- NOTE | 2019-11-09 11:46 | NUR ---
Received a return call from Dr. Forrest's office reporting that patient has a follow up appointment on 11/16 at 2:00 PM.
[2019-11-09 12:10] VITALS: BP 160/57
--- NOTE | 2019-11-09 14:44 | NUR ---
Per request of Dr. Eli, Dr. Chen with pulmonology was contacted as well as GI, Dr. Wilson for follow up appointments. Appointments will be set up via each office. Requested records were faxed. Patient's daughter is aware of these two follow up appointments.
--- NOTE | 2019-11-09 17:42 | NUR ---
Patient Health Summary, Discharge Summary, and Home Meds printed and reviewed with patient. Stressed importance of follow up appointments. Belongings gathered by ROSALINA/Caprice including wheelchair, wedding ring and misc. clothes and items. Patient transported via wheelchair by INDIO/Brissa and seatbelted for ride home with daughter. Patient and daughter denied questions.
== END 2019-11-09 13:44 | disposition home health service (06) | DRG 682 ==
PROVIDERS: ADMIT Internal Medicine
DX: N17.9 Acute kidney failure, unspecified (principal); I21.4 Non-ST elevation (NSTEMI) myocardial infarction; I13.0 Hypertensive heart and chronic kidney disease with heart failure and stage 1 through stage 4 chronic kidney disease, or unspecified chronic kidney disease; E87.1 Hypo-osmolality and hyponatremia; I48.91 Unspecified atrial fibrillation; K21.9 Gastro-esophageal reflux disease without esophagitis; E11.22 Type 2 diabetes mellitus with diabetic chronic kidney disease; D50.0 Iron deficiency anemia secondary to blood loss (chronic); N18.4 Chronic kidney disease, stage 4 (severe); J44.9 Chronic obstructive pulmonary disease, unspecified; F17.210 Nicotine dependence, cigarettes, uncomplicated; I25.10 Atherosclerotic heart disease of native coronary artery without angina pectoris; K21.0 Gastro-esophageal reflux disease with esophagitis; K29.70 Gastritis, unspecified, without bleeding; M25.551 Pain in right hip; R41.3 Other amnesia; D69.6 Thrombocytopenia, unspecified; E87.5 Hyperkalemia
CPT/HCPCS: 99222-AI; 99231-AI; 99232-AI; 99239; A9284; J1815

== ENCOUNTER 2020-01-19 09:08 | Day surgery (SDC) | payer MEDICARE, MEDICAID ==
[~2020-01-19] VITALS: Ht 167.6 cm; Wt 66.1 kg
[~2020-01-19 09:08] MED LIST changes: +APRESOLINE 25MG25 MG PO; +BENICAR5 MG PO; +CARAFATE S1 GM/10 ML PO; +CRESTOR 10MG10 MG PO; +KLOR-CON SPRIN10 MEQ PO; +LANOXIN 0.120.125 MG PO; +MUCINEX D1 TER PO; +NEURONTIN100 MG/CAP PO; +PLAVIX 75MG TAB75 MG PO; +PROVENTIL0.09 MG/A1 IH; +PULMICORT180 MCG/Ac IH; +TESSALON P100 MG/CAP PO; +TOPROL XL 25MG25 MG PO
[2020-01-19 10:12] LABS: CREATININE, serum 3.56 (0.52-1.25); POTASSIUM 4.2 mmol/L (3.4-5.0)
[2020-01-19 10:25] VITALS: BP 168/64; PULSE 69; TEMP 97.8
[2020-01-19] MEDS ORDERED: BENICAR40 MG PO (10:54)
[2020-01-19] MEDS ORDERED: CATAPRES 0.1MG0.1 MG PO (10:55)
[2020-01-19] MEDS ORDERED: TESSALON P100 MG/CAP PO (10:55)
[2020-01-19] MEDS ORDERED: NEURONTIN100 MG/CAP PO (10:56)
[2020-01-19] MEDS ORDERED: MELATONIN5 M1 SL (10:58)
[2020-01-19] MEDS ORDERED: ATARAX 25MG25 MG/TAB PO (10:59)
[2020-01-19 13:22] VITALS: BP 161/45; PULSE 72
--- NOTE | 2020-01-19 13:22 | NUR ---
Patient returns to room 1 per cart accompanied by Glen Lawrence CRNA and Khadijah BORJAS. Patient awake and alert. Temp 97.3. Room air sats 95%. Siderails up x2 and call light in reach. Exofen dressing noted on the right upper extremity. Slight thrill palpated on the right upper arm. Allowed to rest.
[2020-01-19 13:37] VITALS: BP 149/59; PULSE 55
--- NOTE | 2020-01-19 13:37 | NUR ---
Continues to rest and denies pain or nausea.
[2020-01-19 13:52] VITALS: BP 140/43; PULSE 61
--- NOTE | 2020-01-19 13:52 | NUR ---
Sipping on coffee and water.
[2020-01-19 14:07] VITALS: BP 120/87; PULSE 55
--- NOTE | 2020-01-19 14:07 | NUR ---
IV discontinued and assisted up to the bathroom. Uses walker to transfer self.
--- NOTE | 2020-01-19 14:30 | NUR ---
Returns to room and sits on the edge of the bed and eats muffin.
--- NOTE | 2020-01-19 14:45 | NUR ---
Patient dresses self. Dismissal instructions given and voices understanding of these. Instructed on fistula cares and voices understanding of these.
--- NOTE | 2020-01-19 15:07 | NUR ---
Patient dismissed to home driven by daughter and taken to the emergency room entrance by wheelchair and assisted into car with belongings and instructions in hand.
== END 2020-01-19 15:07 | disposition home or self-care (01) ==
LOC: SDCO 09:08
PROVIDERS: Nurse Anesthetist, Certified Registered
DX: E11.22 Type 2 diabetes mellitus with diabetic chronic kidney disease (principal); I13.2 Hypertensive heart and chronic kidney disease with heart failure and with stage 5 chronic kidney disease, or end stage renal disease; N18.6 End stage renal disease; I73.9 Peripheral vascular disease, unspecified; Z79.82 Long term (current) use of aspirin; I48.20 Chronic atrial fibrillation, unspecified; E78.5 Hyperlipidemia, unspecified; J44.9 Chronic obstructive pulmonary disease, unspecified; D63.1 Anemia in chronic kidney disease; F17.210 Nicotine dependence, cigarettes, uncomplicated; Z91.048 Other nonmedicinal substance allergy status; Z88.3 Allergy status to other anti-infective agents; Z88.1 Allergy status to other antibiotic agents; I50.9 Heart failure, unspecified; I25.2 Old myocardial infarction
CPT/HCPCS: C1768; J0360; J0690; J1644; J2405; J2704; J3010; J7030

== ENCOUNTER 2020-02-02 09:44 | Outpatient (CLI) | payer MEDICARE, MEDICAID ==
[~2020-02-02] VITALS: Ht 167.6 cm; Wt 65.0 kg
[2020-02-02] VITALS (12 sets, daily range): BP systolic 138–187; BP diastolic 57–136; PULSE 67–81
[~2020-02-02 09:44] MED LIST changes: +ATARAX 25MG25 MG/TAB PO; +FERROUS FUMARA324 MG; +FERROUS GL325 MG/TAB PO; +LASIX 80MG TABL80 MG PO; +MELATONIN5 M1 SL; +TRELEGY ELLIPT1 EACH IH
--- NOTE | 2020-02-02 14:09 | NUR ---
Discharge instructions given to pt.Pt verbalizes understanding.INT removed,catheter tip intact.Pt daughter called for ride home.
--- NOTE | 2020-02-02 14:43 | NUR ---
Discharge instructions given to pt.Pt verbalizes understanding.INT removed,catheter tip intact.Pt escorted out via wheelchair by this nurse.
== END 2020-02-02 15:41 | disposition home or self-care (01) ==
LOC: COL.RAD 09:44
DX: R91.8 Other nonspecific abnormal finding of lung field (principal)

== ENCOUNTER → 2020-03-06 | Outpatient (CLI) | payer MEDICARE, MEDICAID ==
--- NOTE | 2020-03-02 09:44 | NUR ---
LMOM WITH INSTRUCTIONS AND CALL BACK NUMBER
[~2020-03-06] VITALS: Ht 167.6 cm; Wt 69.0 kg
[2020-03-06 09:14] VITALS: BP 172/91; PULSE 109
[2020-03-06 09:50] VITALS: BP 173/88; PULSE 97
== END ==
LOC: COL.RAD 08:56
DX: K11.8 Other diseases of salivary glands (principal)